=== PATIENT | male | born 1945 | race Caucasian/White ===

== ENCOUNTER 2017-12-23 15:11 | Inpatient (IN) | payer BC, OTHER ==
[2017-12-23 17:04] LABS: Absolute Lymphocytes (CBC) 1.7 K/uL (0.7-4.9); Absolute Neutrophil 11.1 K/uL (1.8-8.0); Basophils % 0.7 % (0-1.3); Eosinophils % 0.1 % (0-4.4); Hematocrit 34.7 % (39.6-49.0); Lymphocytes % 12.1 % (15.3-44.8); MCH 33.1 pg (27.0-35.0); MCV 93.6 fL (80-100); MPV 7.4 fL (7.6-11.3); Monocytes % 7.5 % (3.3-12.3); RBC Red Blood Cell Count 3.71 M/uL (4.33-5.43)
[2017-12-23 17:19] VITALS: BMI 26.2
[2017-12-23 17:23] LABS: Albumin 3.1 g/dL (3.4-5.0); Bilirubin Total 0.4 mg/dL (0.2-1.0); Potassium 3.6 mmol/L (3.5-5.1); Protein, Total 7.5 g/dL (6.4-8.2)
[2017-12-23] MEDS ORDERED: VANCOMYCIN 1.5 GM in NA CHLORIDE 0.9% 500 ML IVPB SCH ×2 (18:00→21:00)
[2017-12-23] MEDS ORDERED: D50W 25 GM/50 ML SYRINGE IV PRN (18:27)
[2017-12-23] MEDS ORDERED: GLUCAGON 1 MG/VIAL IM PRN (18:27)
--- NOTE | 2017-12-23 18:28 | RAD REPORT ---
EXAM DESCRIPTION: RAD - Foot Left 2 View - 12/23/2017 6:00 pm CLINICAL HISTORY: gangrene L foot COMPARISON: No comparisons FINDINGS: Diffuse osteopenia is seen. Prominent calcaneal spurs are present. No radiographic finding to indicate osteomyelitis. If clinical concern for osteomyelitis persists, MR imaging would be recom mended.
--- NOTE | 2017-12-23 20:48 | RAD REPORT ---
EXAM DESCRIPTION: VAS - Upper Lower Extrem Art Multi - 12/23/2017 8:41 pm CLINICAL HISTORY: gangrene L foot COMPARISON: None TECHNIQUE: Bilateral lower extremity arterial Doppler examination was performed with waveform tracin g and ankle brachial pressure measurements. FINDINGS: Symmetric brachial pressure measurements are noted. Significant peripheral vascular disease is seen throughout both lower extremity arterial systems. Bot h the right and the left superficial femoral arteries appear occluded or near occlusion. Both poplite al arteries show mono and biphasic flow likely from collateralization. The right posterior tibial art gold and dorsalis pedis artery shows diseased monophasic waveforms. The left posterior tibial artery a ppears occluded. The left dorsalis pedis artery demonstrates monophasic flow. Right ankle brachial index measures 0.6, abnormally low. Left ankle brachial index measures 0.4, abnormally low IMPRESSION: Advanced bilateral peripheral vascular disease as detailed, worse on the left.
[2017-12-23] MEDS ORDERED: INSULIN -REGULAR HUMAN 50 UNIT/0.5 ML ML SQ SCH (21:00)
[2017-12-24 08:39] LABS: Urine Appearance CLEAR; Urine Bilirubin NEGATIVE (NEG); Urine Blood NEGATIVE (NEG); Urine Color YELLOW; Urine Glucose NEGATIVE (NEG); Urine Protein NEGATIVE (NEG); Urine pH 6.5 (5.0-7.0)
[2017-12-24 08:44] LABS: Urine Microscopic Reflex NO UMIC
[2017-12-24] MEDS ORDERED: AMLODIPINE 10 MG TAB PO SCH (09:00)
[2017-12-24] MEDS ORDERED: LOSARTAN POTASSIUM 50 MG TABLET PO SCH (09:00)
[2017-12-24 09:51] VITALS: BP 106/65; TEMP 97.6
--- NOTE | 2017-12-24 11:05 | CON ---
Reason For Consultation: Peripheral vascular disease. History Of Present Illness: Mr. Starr is 72-year-old. He takes medications to treat high blood pr essure and diabetes. He has had both for many years. He is reliable about taking the medications. He went to see Dr. Jeffers because his toe started breaking down, the skin broke down, they turned dark , open wounds on the left foot. Dr. Jeffers diagnosed gangrene, ordered an ultrasound of the leg arter ies and that has shown that both SFA arteries 100% occluded, both over a long distance and the blood flow was all through collateral blood flow. Mr. Starr is a regular tobacco user. He sounded very negative about trying to quit smoking. He seemed to understand what I told him that his tobacco use had contributed greatly to bad situation in his feet and the arteries of his leg. He has never had a ny vascular surgery before or other surgeries. He lives alone. He is very irritable, easy to anger. It sounds like he is angry over the situation with his legs and the fact that I have recommended to him that he be transferred to a vascular surgeon to try and do a fem-pop bypass on the left before h e gets amputation. Both the idea of amputation and the idea of surgery things that made him seem ang ry. He reports no allergies. Physical Examination: Vital Signs: 5 feet 10 inches, 182 pounds. General: He looks disheveled, unkempt. He is alert, oriented, and pleasant. He does seem to be con fused. He has the same questions several times, so I am not sure if it is confusion or if the bad ne ws about possibly needing amputation with like a grief reaction and remained in denial at this time, either 1 is possible. He was telling Dr. Jeffers. He does not want to be transferred to the ambulance . He is willing to drive up and see the doctors up there. Extremities: There are not any pulses in his legs that I can feel at all. The Doppler studies showe d ankle-brachial index of 0.4 using pulsed waveforms, not palpation. Lungs: Reveal decreased breath sounds in the base. No wheezes. Heart: Within normal limits. Diagnostic Data: We do not have any old EKGs, no chest x-rays. There is a foot x-ray, it is basical ly saying he does not think there is osteomyelitis. Impression: The patient has complicated peripheral vascular disease with gangrene. I would not trina mmend attempting to open that artery using a stent. I think he should get a femoral-popliteal bypass and after a period of time determined by the surgeon amputation of the gangrenous areas of his toes. FLORENTIN/JINA Voice ID: [id number] Report ID: [id number]
[2017-12-24] MEDS ORDERED: ATORVASTATIN 20 MG TAB PO SCH (21:00)
--- NOTE | 2017-12-24 23:25 | HP ---
Date of Admission: 12/23/2017 Chief Complaint: Pain, discoloration of the left foot. History Of Present Illness: A 72-year-old male who is known to have diabetes and taking insulin, who has not been seen in the office for nearly 9 months, was brought to the office because of the above- mentioned complaint. He was found to have gangrene change in the second toe and peeling of the skin of the big toe. He had no pedal pulses. The patient is admitted with a diagnosis of gangrenous foot with cellulitis. The patient denied any history of trauma. Past Medical History: He is known to have a history of type 2 diabetes requiring insulin, history of hypertension, COPD. Past Surgical History: Positive for appendectomy, history of cyst removal on the back. Family History: Noncontributory. Personal History: Allergies: NO KNOWN ALLERGIES. Home Medicines: Insulin, Zestoretic. Review of Systems: No history of fever, chills, or rigors. Physical Examination: GENERAL: A 72-year-old male, in poor hygienic conditions. HEENT: Negative. Neck: Supple. JVD negative. Chest: Scattered wheezes. Heart: Regular. Abdomen: Soft. Extremities: He has gangrenous changes of the second toe with open area of oozing and bleeding, left big toe. Pedal pulses are absent. Femoral pulses are feeble bilaterally. There is redness of the left foot. Laboratory Data: White count 14,000. Arterial study; bilateral vascular disease, severe, left more than the right. Assessment: 1.Gangrene, left foot. 2.Cellulitis, left foot. 3.Severe peripheral vascular disease. 4.Chronic obstructive pulmonary disease due to smoking. 5.Type 2 diabetes. 6.Hypertension. Plan: The patient is started on vancomycin in view of cellulitis and elevated white count. The guera ent was seen by Cardiology Service today and advised vascular procedure in view of diffuse disease. The patient however signed AMA and left the hospital. LIN/JINA Voice ID: [id number]
== END 2017-12-24 09:35 | disposition left against medical advice (07) | DRG 300 ==
LOC: 2ND 15:28
PROVIDERS: ADMIT Internal Medicine; ATTEND Internal Medicine
DX: E11.52 Type 2 diabetes mellitus with diabetic peripheral angiopathy with gangrene (principal); I96 Gangrene, not elsewhere classified; L03.116 Cellulitis of left lower limb; L97.521 Non-pressure chronic ulcer of other part of left foot limited to breakdown of skin; F17.200 Nicotine dependence, unspecified, uncomplicated; I10 Essential (primary) hypertension; Z79.4 Long term (current) use of insulin; J44.9 Chronic obstructive pulmonary disease, unspecified
CPT/HCPCS: 36415; 80053; 81003; 82962; 83036; 85025; 93923